=== PATIENT | male | born 1950 | race Caucasian/White ===

== ENCOUNTER 2017-12-25 12:17 | Inpatient (IN) | payer OTHER ==
[~2017-12-25] VITALS: Ht 172.7 cm; Wt 112.2 kg
[2017-12-25] VITALS (38 sets, daily range): BP systolic 102–156; BP diastolic 75–127; BMI 36.6
--- NOTE | ~2017-12-25 | HEMODYNAMI ---
PATIENT:ALLI HUFF MEDICAL RECORD: [id number] : 52 [id number] ADMISSION DATE: 12/25/17 Generatedon:12/25/201713:24 Patient name: ALLI HUFF Patient #: [id number] SSN: : 1950 Date of study: 12/25/2017 Page: Of Hemodynamic Procedure Report Patient Data Patient Demographics Procedure consent was obtained First Name: ALLI Gender: Male Last Name: DARIA : 1950 Patient #: [id number] Age: 67 year(s) Race: Unknown Additional ID: [id number] Admission Admission Data Admission Date: 12/25/2017 Admission Time: 12:17 Admit Source: Emergency department Procedure Procedure Types Cath Procedure Diagnostic Procedure [facility] Coronaries only PCI Procedure AMI/SVG/FORM STRIPPER PTCA or Stent AMI-BMS/WIN Initial Procedure Description Procedure Date Procedure Date: 12/25/2017 Procedure Start Time: 12:52 Procedure End Time: 13:21 Procedure Staff Name Function Kelechi Zavaleta MD Performing Physician Casper Schafer RT Monitor John Gatica RN Nurse Veronica Mena RT Scrub Procedure Data Cath Procedure Fluoroscopy Diagnostic fluoroscopy Total fluoroscopy Time: 5.8 time: 5.8 min min Diagnostic fluoroscopy Total fluoroscopy dose: dose: 1140 mGy 1140 mGy Contrast Material Contrast Material Type Amount (ml) Isovue 300 98 Entry Location Entry Primary Successful Side Size Upsize Upsize Entry Closure Succes sful Closure Location (Fr) 1 (Fr) 2 (Fr) Remarks Device Remarks Femoral Right 6 Fr Exoseal artery Short Estimated blood loss: 10 ml Diagnostic catheters Device Type Used For End Catheter Placement MULTIPACK JL 4.0 5Fr Procedure catheter MULTIPACK 3DRC 5Fr Procedure catheter Procedure Complications No complications Procedure Medications Medication Administration Route Dosage Oxygen etCO2 Nasal cannula 2 l/min Heparin Flush Bag added to field 2 bags (1000units/500ml NS) 0.9% NaCl I.V. 100 ml/hr Fentanyl I.V. 50 mcg Versed I.V. 1 mg Fentanyl I.V. 50 mcg Versed I.V. 1 mg Heparin Bolus I.V. 4000 units Integrilin (Bolus I.V. 9 ml 2mg/ml) Nitroglycerin IC/IA I.C. 200 mcg Lopressor I.V. 2.5 mg Hemodynamics Rest Heart Rate: 108 (bpm) Pressure Samples Time Site Value (mmHg) Purpose Heart Use Rate(bpm) 13:03 AO 119/81(98) Snapshot 84 Snapshots Pre Cath Intra NCS Post Cath Vital Signs Time Heart Resp SPO2 etCO2 NIBP (mmHg) Rhythm Pain Sedation Rate (ipm) (%) (mmHg) Status Level (bpm) 12:43:26 78 16 96 0 138/98(122) NSR 0 (11) 10(A) , No pain 12:48:17 88 18 94 0 139/92(105) NSR 0 (11) 10(A) , No pain 12:53:04 92 17 97 0 135/90(106) NSR 0 (11) 10(A) , No pain 12:57:50 89 16 93 0 128/89(100) NSR 0 (11) 10(A) , No pain 13:02:39 82 16 96 0 128/80(103) NSR 0 (11) 10(A) , No pain 13:07:28 72 16 96 0 127/85(107) NSR 0 (11) 10(A) , No pain 13:12:14 90 16 95 0 140/96(111) NSR 0 (11) 10(A) , No pain 13:17:03 92 17 94 0 134/94(110) NSR 0 (11) 10(A) , No pain 13:20:43 28 18 96 0 139/86(113) NSR 0 (11) 10(A) , No pain Medications Time Medication Route Dose Verified Delivered Reason Notes Effectiveness by by 12:44:49 Oxygen etCO2 2 Kelechi John Per physician Nasal l/min Waqar Gatica RN cannula 12:44:57 Heparin Flush added 2 Kelechi John used for Bag to bags Waqar Gatica RN procedure (1000units/500ml field NS) 12:45:05 0.9% NaCl I.V. 100 Kelechi John Per physician ml/hr Waqar Gatica RN, MD 12:48:03 Fentanyl I.V. 50 Kelechi John for sedation mcg Waqar Gatica RN, MD 12:48:10 Versed I.V. 1 mg Kelechi John for sedation Waqar Gatica RN, MD 12:54:51 Fentanyl I.V. 50 Kelechi John for sedation mcg Waqar Gatica RN, MD 12:54:55 Versed I.V. 1 mg Kelechi John for sedation Waqar Gatica RN, MD 13:00:04 Heparin Bolus I.V. 4000 Kelechi John for units Waqar Gatica RN anticoagulation 13:01:36 Integrilin I.V. 9 ml Kelechi John for (Bolus 2mg/ml) Waqar Gatica RN antiplatelet MD therapy 13:12:13 Nitroglycerin I.C. 200 Kelechi John for IC/IA mcg Waqar Gatica RN vasodilation MD 13:23:53 Lopressor I.V. 2.5 Kelechi John Per physician mg Waqar Gatica RN, MD Procedure Log Time Note 12:20:47 John Gatica RN sent for patient. Start room use. 12:35:24 Admit Source: Emergency department 12:36:49 Time tracking: Call back (After hours or weekends) 12:36:53 Plan of Care:Hemodynamics will remain stable., Cardiac rhythm will remain stable., Comfort level will be maintained., Respiratory function will remain adequate., Patient/ family verbilizes understanding of procedure., Procedure tolerated without complication., Recovers from procedure without complications.. 12:36:58 Patient received from ED to CCL 1 Alert and oriented. Tansferred to table in Supine position. 12:42:19 Warm blankets applied, and caren hugger turned on for patient comfort. 12:42:19 Correct patient and procedure confirmed by team. 12:42:21 Signed procedure consent form obtained from patient. 12:42:21 ECG and BP/O2 sat monitors applied to patient. 12:42:22 Vital chart was started 12:44:24 Baseline sample Acquired. 12:44:29 Rhythm: sinus rhythm 12:44:49 Oxygen 2 l/min etCO2 Nasal cannula was administered by John Gatica RN; Per physician; 12:44:57 Heparin Flush Bag (1000units/500ml NS) 2 bags added to field was administered by John Gatica RN; used for procedure; 12:45:05 0.9% NaCl 100 ml/hr I.V. was administered by John Gatica RN; Per physician; 12:45:42 Full Disclosure recording started 12:45:46 H&P Date Dictated: 12/25/2017 Emergent; H&P N/A. 12:45:47 Pre-procedure instructions explained to patient. 12:45:48 Pre-op teaching completed and patient verbalized understanding. 12:45:50 Family unavailable. 12:45:51 Patient NPO since Breakfast. 12:45:59 Is the patient allergic to Iodine/contrast media? No. 12:46:00 Is patient on blood thinner?Yes 12:46:02 ACC The patient was administered the following blood thiners within the last 24 hours: ACCPlavix 12:46:12 PLAVIX LOADED. 12:46:16 Patient diabetic? No. 12:46:18 Previous problem with sedation/anesthesia? No ? 12:46:19 Snore? Yes 12:46:20 Sleep apnea? No 12:46:21 Deviated septum? No 12:46:23 Opens mouth fully? Yes 12:46:24 Sticks out tongue? Yes 12:46:30 Airway obstruction? Yes COPD 12:46:35 Dentures? Yes OUT 12:46:37 Pre procedure: right dorsailis pedis pulse 1+ Palpable, but thready & weak; easily obliterated 12:46:40 Patient pain scale 0/10 ?. 12:46:45 IV patent on arrival in left forearm with 0.9% NaCl at [facility]. 12:47:09 IV Heparin Dc'd upon arrival to the [facility]. 12:47:14 Lab results completed and on chart. 12:47:16 Right groin area was prepped with chlora-prep and draped in sterile fashion 12:47:17 Alarms reviewed by R. N. 12:47:18 Sharps counted by scrub and verified by R.N. 12:47:19 Physician arrived 12:47:20 --------ALL STOP TIME OUT------ 12:47:21 Final Timeout: patient, procedure, and site verified with staff and physician. All members of the team are in agreement. 12:47:26 Right groin site verified by team. 12:47:29 Physical assessment completed. ASA score P 2 - A patient with mild systemic disease as per Kelechi Zavaleta MD. 12:47:32 Sedation plan: IV Moderate Sedation Medication:Versed, Fentanyl 12:48:03 Fentanyl 50 mcg I.V. was administered by John Gatica RN; for sedation; 12:48:10 Versed 1 mg I.V. was administered by John Gatica RN; for sedation; 12:52:42 Procedure started. 12:52:47 Local anesthetic to right femoral artery with Lidocaine 2% by Kelechi Zavaleta MD.INITIAL ACCESS ONLY 12:53:33 Access obtained with 4Fr micropunture. 12:53:36 A 6 Fr Short sheath was inserted into the Right Femoral artery 12:53:40 Use device set Femoral Dx 12:53:42 Tegaderm 4 x 4 (1626W) opened to sterile field. 12:53:43 ACIST Manifold (95617) opened to sterile field. 12:53:44 ACIST Hand Control (60145) opened to sterile field. 12:53:47 ACIST Syringe (29494) opened to sterile field. 12:53:48 Bag Decanter (2002) opened to sterile field. 12:53:50 Medline Cath Pack ([id number]) opened to sterile field. 12:53:53 DIAGNOSTIC WIRE .035 260cm J wire (344389) opened to sterile field. 12:53:56 DIAGNOSTIC Multipack 5Fr catheter set (LM1138) opened to sterile field. 12:54:25 Use device set NORRED PCI 12:54:28 SHEATH Prelude 6Fr 0.035 (MIL-8Q-12-035) opened to sterile field. 12:54:32 INFLATOR Merit BasixCompak (HG7156) opened to sterile field. 12:54:34 COPILOT Valve Control (4092274) opened to sterile field. 12:54:41 BMW 190cm Midkiff 2 J wire ([id number]) opened to sterile field. 12:54:45 MICROPUNCTURE 4FR Cook (V65027) opened to sterile field. 12:54:51 Fentanyl 50 mcg I.V. was administered by John Gatica RN; for sedation; 12:54:52 A MULTIPACK JL 4.0 5Fr catheter was advanced over the wire and used for Procedure. 12:54:55 Versed 1 mg I.V. was administered by John Gatica RN; for sedation; 12:56:45 LCA angiography performed. 12:56:47 Catheter exchanged over wire. 12:57:20 A MULTIPACK 3DRC 5Fr catheter was advanced over the wire and used for Procedure. 12:57:59 RCA angiography performed. 12:58:13 Catheter exchanged over wire. 12:59:09 GUIDE 6FR XBLAD 4.0 catheter ([id number]) opened to sterile field. 12:59:22 6 Fr XBLAD 4 guide catheter was inserted over the wire 13:00:04 Heparin Bolus 4000 units I.V. was administered by John Gatica RN; for anticoagulation; 13:00:55 BMW wire advanced. 13:01:36 Integrilin (Bolus 2mg/ml) 9 ml I.V. was administered by John Gatica RN; for antiplatelet therapy; 13:03:27 Wire advanced across lesion. 13:04:07 Inflate balloon Inflation number: 1 A EUPHORA 2.0 x 20 Balloon ([id number]) was prepped and advanced across the Mid LAD, then inflated to 10 COLE for 0:10 (min:sec). 13:04:41 Multiple inflations made at 17 Atms. 13:05:16 Balloon removed over the wire. 13:07:12 Inflate balloon Inflation number: 2 A EUPHORA 3.0 x 20 Balloon ([id number]) was prepped and advanced across the Mid LAD, then inflated to 8 COLE for 0:10 (min:sec). 13:07:27 Balloon removed over the wire. 13:09:54 Place stent Inflation Number: 3 A YUSRA RX 3.0 x 26 stent ([id number]) was prepped and advanced across the Mid LAD. The stent was deployed at 12 COLE for 0:10 (min:sec). 13:10:19 Stent catheter was removed intact over wire. 13:12:13 Nitroglycerin IC/IA 200 mcg I.C. was administered by John Gatica RN; for vasodilation; 13:15:51 Wire removed. 13:15:52 Guide catheter removed. 13:15:54 EXOSEAL 6Fr (EX600) opened to sterile field. 13:16:50 Sheath removed intact; hemostasis achieved with Exoseal to the Right Femoral artery. 13:17:02 Procedure ended.(Physican Out) 13:17:18 Fluoroscopy time 05.80 minutes. 13:17:22 Fluoroscopy dose: 1140 mGy 13:17:22 Flurop Dose total: 1140 13:17:26 Contrast amount:Isovue 300 98ml. 13:17:28 Sharps counted by scrub and verified by R.N. 13:17:29 Insertion/operative site no bleeding no hematoma. 13:17:37 Post-op/insertion site Right Femoral artery dressed using a 4 x 4 and Tegaderm. 13:17:38 Post Procedure Pulses reassessed and unchanged 13:17:42 Post-procedure physical assessment completed. ASA score P 2 - A patient with mild systemic disease as per Kelechi Zavaleta MD. 13:17:45 Post procedure rhythm: unchanged. 13:17:48 Estimated blood loss: 10 ml 13:17:50 Post procedure instruction explained to patient.Patient verbalizes understanding. 13:17:51 Patient needs reinforcement of post procedure teaching. 13:18:09 Procedure type changed to Cath procedure, Diagnostic procedure, LHC, Coronaries only, PCI procedure, AMI/SVG/FORM STRIPPER PTCA or Stent, AMI-BMS/WIN Initial 13:18:13 Procedure Complication : No complications 13:18:51 Procedure and supply charges have been captured, reviewed, submitted and are correct. 13:19:13 Vital chart was stopped 13:19:13 See physician's report for complete and final results. 13:19:15 Report given to CVICU. 13:19:30 Patient transfered to CVICU with Bed. 13:21:40 Procedure ended. 13:21:40 Full Disclosure recording stopped 13:23:53 Lopressor 2.5 mg I.V. was administered by John Gatica RN; Per physician; 13:24:13 End room use (Document Last) Intervention Summary Intervention Notes Time ActionType Lesion and Equipment Used Action# Pressure Duration Attributes 13:04:07 Inflate Mid LAD EUPHORA 2.0 x 1 10 00:10 balloon 20 Balloon ([id number]) 13:07:12 Inflate Mid LAD EUPHORA 3.0 x 2 8 00:10 balloon 20 Balloon ([id number]) 13:09:54 Place stent Mid LAD YUSRA RX 3.0 x 3 12 00:10 26 stent ([id number]) Device Usage Item Name Manufacture Quantity Catalog Hospital Part Current M inimal Lot# / Number Charge Number Stock Stock Serial# Code Tegaderm 4 x 4 3M 1 1626W [id number] 233716 [id number] 5 (1626W) ACIST Manifold Acist 1 17216 296807 840950 859380 5 (39294) Medical Systems Inc ACIST Hand Acist 1 62070 558227 745867 864158 5 Control (00050) [employer] Inc ACIST Syringe Acist 1 37991 879137 835567 004988 2 0 (14739) [employer] Systems Inc Bag Decanter Microtek 1 2001S 914630 80576 305208 5 (2001S) Medical Inc. Medline Cath Cardinal 1 [id number] 035827 04644 721520 5 Pack Health ([id number]) DIAGNOSTIC WIRE [place] 1 192546 054865 842604 646925 3 0 .035 260cm J wire (413750) DIAGNOSTIC Cardinal 1 TR5020 635684 97021 044920 3 0 Multipack 5Fr Health catheter set (UW7993) SHEATH Prelude Merit 1 MAO-6Q-07-35 221173 9819456 787004 5 6Fr 0.035 Medical (UIE-0M-29-035) INFLATOR Merit Merit 1 HB3217 969257 868246 509380 1 5 BasixPCA [employer] (QI8489) COPILOT Valve Jaramillo 1 2022007 874104 288026 836495 5 Control Vascular (9258360) BMW 190cm Jaramillo 1 [id number] 107356 91440 293358 5 Midkiff 2 J Vascular wire ([id number]) MICROPUNCTURE Cook Medical 1 E71010 474833 029438 744963 5 4FR Cook (D97904) MULTIPACK JL Cardinal 1 236067 5 4.0 5Fr Health catheter MULTIPACK 3DRC Cardinal 1 844119 5 5Fr catheter Health GUIDE 6FR XBLAD Cardinal 1 48439896 937162 433995 771125 3 4.0 catheter Health (41013893) EUPHORA 2.0 x Medtronic 1 [id number] 587918 131150 698340 5 [id number] 20 Balloon ([id number]) EUPHORA 3.0 x Medtronic 1 [id number] 303940 706539 442520 5 [id number] 20 Balloon ([id number]) YUSRA RX 3.0 x Medtronic 1 [id number] 789292 1932495 129111 5 [id number] 26 stent ([id number]) EXOSEAL 6Fr Cardinal 1 EX600 262838 253607 373816 1 0 (EX600) Health Signature Audit Almyra Stage Time Signature Unsigned Intra-Procedure 12/25/2017 Casper Schafer 1:24:38 PM RT(R) Signatures Monitor : Casper Schafer RT Signature : Date : Time : [address] [address]
[2017-12-25 12:44] LABS: HEMATOCRIT 42.5 % (42.0-54.0); HEMOGLOBIN 14.9 g/dL (13.5-17.5); MCH 33.4 pg (26.0-34.0); MCHC 35.1 g/dL (31.0-37.0); MCV 95.3 fL (80.0-100.0); MEAN PLATELET VOLUME 10.2 fL (7.4-10.4); PLATELET COUNT 264 10x3/uL (130-400); RBC 4.46 10x6/uL (4.20-6.10); RDW 12.9 % (11.5-14.5); WBC 20.3 10x3/uL (4.8-10.8)
[2017-12-25 12:57] LABS: ALBUMIN 3.4 g/dL (3.4-5.0); ALKALINE PHOSPHATASE 83 U/L (46-116); ALT (SGPT) 34 U/L (10-68); BILIRUBIN - TOTAL 0.41 mg/dL (0.2-1.3); CALC OSMOLALITY 277 mosm/kg (275-300); CARBON DIOXIDE 26.1 mmol/L (21.0-32.0); CHLORIDE - SERUM 104 mmol/L (98-107); CREATININE - SERUM 0.8 mg/dL (0.6-1.3); GLUCOSE 133 mg/dL (74-106); POTASSIUM - SERUM 4.2 mmol/L (3.5-5.1); PROTEIN - SERUM 7.2 g/dL (6.4-8.2); SODIUM 139 mmol/L (136-145); UREA NITROGEN 6 mg/dL (7-18); eGFR NON AFRICAN AMERICAN > 90 mL/min (90-120)
[2017-12-25 13:08] LABS: CHOL - HDL RATIO 3.6 ratio (2.3-4.9); CHOLESTEROL, TOTAL 169 mg/dL (0-200); CKMB 111.8 U/L (0.0-3.6); HDL CHOLESTEROL 47 mg/dL (32-96); LDL CHOLESTEROL 114 mg/dL (0-100); LDL-HDL RATIO 2.4 ratio (1.5-3.5); TRIGLYCERIDE 41 mg/dL (30-200)
[2017-12-25 13:09] LABS: CREATINE KINASE 1724 UL (21-232)
[2017-12-25 13:20] LABS: LYMPHOCYTES 8 % (15-50); MONOCYTES 4 % (2-11); NEUTROPHILS 88 % (40-80); PLATELET ESTIMATE NORMAL
[2017-12-25 13:30] LABS: TROPONIN-I 47.051 ng/mL (0.000-0.060)
[2017-12-25 17:08] LABS: HEMATOCRIT 40.9 % (42.0-54.0); HEMOGLOBIN 13.9 g/dL (13.5-17.5); MCH 33.1 pg (26.0-34.0); MCV 97.4 fL (80.0-100.0); MEAN PLATELET VOLUME 10.3 fL (7.4-10.4); PLATELET COUNT 285 10x3/uL (130-400); RDW 13.1 % (11.5-14.5); WBC 21.2 10x3/uL (4.8-10.8)
[2017-12-25 18:07] LABS: LYMPHOCYTES 5 % (15-50); NEUTROPHILS 95 % (40-80)
[2017-12-25 18:08] LABS: PLATELET ESTIMATE NORMAL
[2017-12-25 22:51] LABS: BASOPHILS 0.1 % (0-2); EOSINOPHILS 0 % (0-7); HEMATOCRIT 36.7 % (42.0-54.0); HEMOGLOBIN 12.7 g/dL (13.5-17.5); IMMATURE GRANULOCYTES 0.3 % (0-5); LYMPHOCYTES 8.5 % (15-50); MCH 33.2 pg (26.0-34.0); MCHC 34.6 g/dL (31.0-37.0); MCV 96.1 fL (80.0-100.0); MEAN PLATELET VOLUME 10.3 fL (7.4-10.4); MONOCYTES 6.1 % (2-11); PLATELET COUNT 276 10x3/uL (130-400); RBC 3.82 10x6/uL (4.20-6.10); RDW 13.1 % (11.5-14.5); WBC 20.3 10x3/uL (4.8-10.8)
[2017-12-26] VITALS (49 sets, daily range): BP systolic 85–125; BP diastolic 52–86
[2017-12-26 06:02] LABS: BASOPHILS 0.1 % (0-2); EOSINOPHILS 0 % (0-7); HEMATOCRIT 34.4 % (42.0-54.0); HEMOGLOBIN 11.7 g/dL (13.5-17.5); IMMATURE GRANULOCYTES 0.3 % (0-5); LYMPHOCYTES 16.9 % (15-50); MCV 96.9 fL (80.0-100.0); MEAN PLATELET VOLUME 10.2 fL (7.4-10.4); MONOCYTES 8.2 % (2-11); NEUTROPHILS 74.5 % (40-80); PLATELET COUNT 270 10x3/uL (130-400); RBC 3.55 10x6/uL (4.20-6.10); RDW 13.1 % (11.5-14.5); WBC 21.4 10x3/uL (4.8-10.8)
[2017-12-26 06:23] LABS: ALBUMIN 2.8 g/dL (3.4-5.0); ALKALINE PHOSPHATASE 65 U/L (46-116); BILIRUBIN - TOTAL 0.47 mg/dL (0.2-1.3); CARBON DIOXIDE 27.7 mmol/L (21.0-32.0); CHLORIDE - SERUM 105 mmol/L (98-107); CREATININE - SERUM 0.9 mg/dL (0.6-1.3); GLUCOSE 121 mg/dL (74-106); PROTEIN - SERUM 6.3 g/dL (6.4-8.2); SODIUM 139 mmol/L (136-145); eGFR NON AFRICAN AMERICAN 90 mL/min (90-120)
[2017-12-26 06:24] LABS: ALT (SGPT) 62 U/L (10-68); CALC OSMOLALITY 277 mosm/kg (275-300); UREA NITROGEN 9 mg/dL (7-18)
[2017-12-26 10:51] LABS: CHOL - HDL RATIO 3.4 ratio (2.3-4.9)
[2017-12-26 13:14] LABS: APPEARANCE CLEAR (CLEAR); BILIRUBIN NEGATIVE (NEGATIVE); COLOR YELLOW (YELLOW); GLUCOSE NEGATIVE (NEGATIVE); KETONE NEGATIVE (NEGATIVE); NITRITE NEGATIVE (NEGATIVE); PROTEIN NEGATIVE (NEGATIVE); UROBILINOGEN NORMAL (NORMAL)
[2017-12-26] MEDS ORDERED: LISINOPRIL10 MG PO (16:06)
[2017-12-26] MEDS ORDERED: ZANTAC150 MG PO (16:06)
[2017-12-26] MEDS ORDERED: VITAMIN B-121000 MCG PO (16:15)
[2017-12-26] MEDS ORDERED: NORVASC10 MG PO (16:16)
[2017-12-26] MEDS ORDERED: DESERYL100 MG PO (16:21)
[2017-12-26] MEDS ORDERED: MYSOLINE250 MG PO (16:21)
[2017-12-26] MEDS ORDERED: SINGULAIR10 MG PO (16:23)
[2017-12-26] MEDS ORDERED: PROZAC20 MG PO (16:23)
[2017-12-26] MEDS ORDERED: ROBAXIN-750750 MG PO (16:26)
[2017-12-26] MEDS ORDERED: TOPROL XL50 MG PO (16:27)
[2017-12-26] MEDS ORDERED: REFRESH TEARS15 ML EACH EYE (16:29)
[2017-12-26] MEDS ORDERED: XALATAN 0.0052.5 ML EACH EYE (16:29)
[2017-12-27] VITALS (15 sets, daily range): BP systolic 90–139; BP diastolic 64–104; Ht 172.7 cm; Wt 112.2 kg
[2017-12-27 04:19] LABS: BASOPHILS 0.1 % (0-2); EOSINOPHILS 0.2 % (0-7); HEMATOCRIT 32.9 % (42.0-54.0); HEMOGLOBIN 11.3 g/dL (13.5-17.5); IMMATURE GRANULOCYTES 0.3 % (0-5); LYMPHOCYTES 17.6 % (15-50); MCHC 34.3 g/dL (31.0-37.0); MCV 96.2 fL (80.0-100.0); MEAN PLATELET VOLUME 10.2 fL (7.4-10.4); MONOCYTES 9.4 % (2-11); NEUTROPHILS 72.4 % (40-80); RBC 3.42 10x6/uL (4.20-6.10); RDW 12.9 % (11.5-14.5)
[2017-12-27 04:34] LABS: CALC OSMOLALITY 276 mosm/kg (275-300); CALCIUM 8.1 mg/dL (8.5-10.1); CHLORIDE - SERUM 106 mmol/L (98-107); CREATININE - SERUM 0.7 mg/dL (0.6-1.3); GLUCOSE 108 mg/dL (74-106); POTASSIUM - SERUM 3.9 mmol/L (3.5-5.1); SODIUM 139 mmol/L (136-145); eGFR NON AFRICAN AMERICAN > 90 mL/min (90-120)
[2017-12-27 04:38] LABS: PLATELET COUNT 199 10x3/uL (130-400); UREA NITROGEN 6 mg/dL (7-18); WBC 13.7 10x3/uL (4.8-10.8)
[2017-12-27] MEDS ORDERED: FLUTICASONE PRO16 GM NASAL (11:43)
[2017-12-28 06:13] LABS: BASOPHILS 0.1 % (0-2); EOSINOPHILS 0.3 % (0-7); HEMATOCRIT 35.5 % (42.0-54.0); HEMOGLOBIN 12.3 g/dL (13.5-17.5); IMMATURE GRANULOCYTES 0.3 % (0-5); LYMPHOCYTES 19.6 % (15-50); MCH 33.5 pg (26.0-34.0); MCHC 34.6 g/dL (31.0-37.0); MCV 96.7 fL (80.0-100.0); MEAN PLATELET VOLUME 10.9 fL (7.4-10.4); MONOCYTES 7.7 % (2-11); PLATELET COUNT 237 10x3/uL (130-400); RBC 3.67 10x6/uL (4.20-6.10); WBC 15.7 10x3/uL (4.8-10.8)
[2017-12-28 06:22] LABS: CALC OSMOLALITY 279 mosm/kg (275-300); CALCIUM 8.9 mg/dL (8.5-10.1); CARBON DIOXIDE 24.7 mmol/L (21.0-32.0); CHLORIDE - SERUM 105 mmol/L (98-107); CREATININE - SERUM 0.8 mg/dL (0.6-1.3); GLUCOSE 106 mg/dL (74-106); POTASSIUM - SERUM 4.3 mmol/L (3.5-5.1); SODIUM 141 mmol/L (136-145); eGFR NON AFRICAN AMERICAN > 90 mL/min (90-120)
[2017-12-28 06:28] LABS: UREA NITROGEN 10 mg/dL (7-18)
[2017-12-28 07:51] VITALS: BP 121/82
[2017-12-28 10:25] VITALS: BP 111/69
[2017-12-28] MEDS ORDERED: PLAVIX75 MG PO (12:05)
[2017-12-28] MEDS ORDERED: ASPIRIN325 MG PO (12:05)
[2017-12-28] MEDS ORDERED: LIPITOR80 MG PO (12:07)
[2017-12-28 15:31] VITALS: BP 113/75
== END 2017-12-28 19:11 | disposition home or self-care (01) | DRG 247 ==
LOC: D.ER 12:17 → D.CVICU 13:31 → D.ER 15:08 → D.CVICU 15:20 → D.M2 12-27 16:07
PROVIDERS: Family Medicine; Internal Medicine Cardiovascular Disease; Internal Medicine Nephrology
PROC: B2111ZZ Fluoroscopy of Multiple Coronary Arteries using Low Osmolar Contrast (ICD-10-PCS; 2017-12-25)
PROC: B2151ZZ Fluoroscopy of Left Heart using Low Osmolar Contrast (ICD-10-PCS; 2017-12-25)
PROC: 027034Z Dilation of Coronary Artery, One Artery with Drug-eluting Intraluminal Device, Percutaneous Approach (ICD-10-PCS; principal; 2017-12-25 13:00)
PROC: 4A023N7 Measurement of Cardiac Sampling and Pressure, Left Heart, Percutaneous Approach (ICD-10-PCS; 2017-12-25 13:00)
DX: I21.3 ST elevation (STEMI) myocardial infarction of unspecified site (principal); I25.10 Atherosclerotic heart disease of native coronary artery without angina pectoris; H40.9 Unspecified glaucoma; Z87.891 Personal history of nicotine dependence; E78.5 Hyperlipidemia, unspecified; K21.9 Gastro-esophageal reflux disease without esophagitis; F32.9 Major depressive disorder, single episode, unspecified; D64.9 Anemia, unspecified; D72.829 Elevated white blood cell count, unspecified

== ENCOUNTER → 2018-01-04 14:25 | Outpatient (CLI) | payer MEDICARE, OTHER ==
[2017-12-27 11:00] VITALS: BMI 36.4
--- NOTE | ~2018-01-04 | EC ---
PATIENT:ALLI HUFF DATE OF SERVICE: 01/04/18 SEX: M MEDICAL RECORD: [id number] DATE OF : 52 LOCATION:[facility] AGE OF PATIENT: 67 ADMISSION DATE: 01/04/18 REFERRING PHYSICIAN: INTERPRETING PHYSICIAN: MONICA ESCOTO MD ECHOCARDIOGRAM REPORT ECHO CHARGES 5 ECHO LIMITED Date: 01/04 CLINICAL DIAGNOSIS: POST WA, CAD,STENT, ASSESS EF, ECHOCARDIOGRAPHIC MEASUREMENTS (adult normal given) AC root (d.<3.7cm) cm LV Septum d (<1.2 cm> 1.5 cm Valve Excursion cm LV Septum (systole) 1.8 cm Left Atria (s.<4.0cm> 4.2 cm LVPW d(<1.2cm) 1.8 cm RV (d.<2.3cm) 4.5 cm LVPW (sytole) 1.9 cm LV diastole(<5.6CM) 4.3 cm MV E-F(>70mm/sec) cm LV systole 3.1 cm LVOT Diameter 2.2 cm MV exc.(>10mm) cm Est.ejection fraction (50-75%) % DOPPLER: LVIT cm/sec A 75.0 cm/sec E 46.0 cm/sec LA cm/sec RVSP 23 mmHg LVOT 91 cm/sec AOP1/2T m/s Asc. Ao 118 cm/sec RVOT cm/sec RA cm/sec PA cm/sec AV Gradient Peak 5.57 mmHg AV Mean 2.89 mmHg AV Area 3.1 cm MV Gradient Peak 2.99 mmHg MV Mean 1.01 mmHg MV Area cm COMMENTS: Auto Wash Buffer: 2 JOLLY MARTIN Booking Clerk: 4 Dr. Escoto TAPE# PACS Pericardial Effusion Y DATE OF SERVICE: 01/04/2018 PROCEDURE: Transthoracic echocardiogram. FINDINGS: This echo is very poor, cannot discern endocardial surfaces to estimate ejection fraction or wall motion abnormalities. It appears that there is moderate reduction. There are no gross valvular abnormalities apparent, and there is no significant pericardial effusion. Recommend that we repeat the study with a contrast to get more accurate ECHOCARDIOGRAM REPORT [id number] ALLI HUFF estimation of the patient's LV function given the clinical history of recent large anterior myocardial infarction. TRANSINT:[id number] Voice Confirmation ID: [id number] DOCUMENT ID: [id number] MONICA ESCOTO MD at 1029 CC: [id number] DICTATION DATE: 01/05/18813 [employer]: 01/05/18 1223 DEP CLI 01/04/18 [facility] [address] [place] [address]
[~2018-01-04 14:25] MED LIST: ASPIRIN325 MG PO; DESERYL100 MG PO; FLUTICASONE PRO16 GM NASAL; LIPITOR80 MG PO; LISINOPRIL10 MG PO; MYSOLINE250 MG PO; NORVASC10 MG PO; PLAVIX75 MG PO; PROZAC20 MG PO; REFRESH TEARS15 ML EACH EYE; ROBAXIN-750750 MG PO; SINGULAIR10 MG PO; TOPROL XL50 MG PO; VITAMIN B-121000 MCG PO; XALATAN 0.0052.5 ML EACH EYE; ZANTAC150 MG PO
== END | disposition home or self-care (01) ==
LOC: D.ECHO 13:30
DX: I34.0 Nonrheumatic mitral (valve) insufficiency (principal); I25.10 Atherosclerotic heart disease of native coronary artery without angina pectoris; I50.9 Heart failure, unspecified

== ENCOUNTER → 2018-01-11 17:33 | Outpatient (CLI) | payer MEDICARE, OTHER ==
[2017-12-27 11:00] VITALS: BMI 36.4
[2018-01-11 19:43] LABS: ALT (SGPT) 17 U/L (10-68); CALC OSMOLALITY 270 mosm/kg (275-300); CALCIUM 9.3 mg/dL (8.5-10.1); CARBON DIOXIDE 26.9 mmol/L (21.0-32.0); CHLORIDE - SERUM 100 mmol/L (98-107); CHOL - HDL RATIO 4.6 ratio (2.3-4.9); CHOLESTEROL, TOTAL 204 mg/dL (0-200); CREATINE KINASE 32 UL (21-232); CREATININE - SERUM 0.8 mg/dL (0.6-1.3); GLUCOSE 104 mg/dL (74-106); HDL CHOLESTEROL 44 mg/dL (32-96); LDL CHOLESTEROL 139 mg/dL (0-100); LDL-HDL RATIO 3.2 ratio (1.5-3.5); POTASSIUM - SERUM 4.8 mmol/L (3.5-5.1); SODIUM 136 mmol/L (136-145); TRIGLYCERIDE 105 mg/dL (30-200); UREA NITROGEN 9 mg/dL (7-18); eGFR NON AFRICAN AMERICAN > 90 mL/min (90-120)
== END | disposition home or self-care (01) ==
LOC: D.LABREF 17:33
PROVIDERS: Internal Medicine Cardiovascular Disease
DX: E78.5 Hyperlipidemia, unspecified (principal)

== ENCOUNTER → 2018-03-29 17:05 | Outpatient (CLI) | payer MEDICARE, OTHER ==
[2017-12-27 11:00] VITALS: BMI 36.4
[2018-03-29 17:53] LABS: CHOL - HDL RATIO 2.9 ratio (2.3-4.9); LDL-HDL RATIO 1.6 ratio (1.5-3.5)
== END | disposition home or self-care (01) ==
LOC: D.LABREF 17:05
PROVIDERS: Internal Medicine Cardiovascular Disease
DX: I25.10 Atherosclerotic heart disease of native coronary artery without angina pectoris (principal)